=== PATIENT | female | born 1950 | race Caucasian/White ===

== ENCOUNTER → 2017-12-23 | Outpatient (CLI) | payer MEDICARE, OTHER | LOC: COL.PUL 12-19 14:00 | DX: R06.02 Shortness of breath (principal) | CPT/HCPCS: J7674 ==

== ENCOUNTER → 2020-01-10 | Outpatient (CLI) | payer MEDICARE, OTHER ==
[~2020-01-10] VITALS: Ht 161.3 cm; Wt 88.5 kg
[~2020-01-10] MED LIST: ASPIRIN E.C. 8181 MG PO; ATIVAN 1MG T1 MG/TAB PO; CELEBREX 200MG200 MG PO; COZAAR 25MG25 MG/TAB PO; CYMBALTA 60MG60 MG PO; GLUCOPHAGE1000 MG PO; LANTUS SOLOS100 U/ML SQ; LASIX 20MG TABL20 MG PO; LIPITOR20 MG PO; MAG-OX 400400 MG/TAB PO; MIRAPEX0.5 MG PO; MYSOLINE 5050 MG/TAB PO; PRIL40 PO; SYNTHROID0.05 MG/TA PO; TOPROL XL100 MG PO; TRULICITY0.75 MG/0. SQ; ZESTRIL 20MG TA20 MG PO
[2020-01-10 16:05] VITALS: BP 132/66; PULSE 72
== END ==
LOC: LIGHT 02-15 10:29
DX: Z68.34 Body mass index [BMI] 34.0-34.9, adult (principal); Z98.84 Bariatric surgery status
CPT/HCPCS: G0463

== ENCOUNTER → 2020-10-04 | Outpatient (CLI) | payer MEDICARE, OTHER | LOC: COL.RAD 09:32 | DX: R11.10 Vomiting, unspecified (principal); Z97.8 Presence of other specified devices ==

== ENCOUNTER → 2021-03-09 | Outpatient (CLI) | payer MEDICARE, OTHER | LOC: ZCOL.LAB 14:00 | DX: M25.531 Pain in right wrist (principal) ==

== ENCOUNTER 2024-05-24 06:53 | Day surgery (SDC) | payer MEDICARE, OTHER ==
[2024-05-24] VITALS (7 sets, daily range): BP systolic 125–144; BP diastolic 50–60; PULSE 66–84; TEMP 96.7–97.2
[~2024-05-24] VITALS: Ht 160 cm; Wt 83.4 kg
[~2024-05-24 06:53] MED LIST changes: +LR 1,000 ML IV SCH
[2024-05-24] MEDS ORDERED: MOUNJARO7.5 MG/0.5 IJ (07:56)
[2024-05-24] MEDS ORDERED: fentaNYL 50 MCG/ML 1 ML SYRINGE/VIAL [PACU/SDC ONLY] IV PRN (08:00)
[2024-05-24] MEDS ORDERED: fentaNYL 50 MCG/ML 2 ML VIAL ONE ×2 (08:00→11:43)
[2024-05-24] MEDS ORDERED: Ondansetron 4 MG/2 ML VIAL IV PRN ×2 (08:00→13:00)
[2024-05-24] MEDS ORDERED: HYDROmorphone 1 MG/1 ML SYRINGE [PACU/SDC ONLY] IV PRN (08:00)
[2024-05-24] MEDS ORDERED: droPERidol 2.5 MG/ML 2 ML VIAL IV PRN (08:00)
[2024-05-24] MEDS ORDERED: Midazolam 2 MG/2 ML VIAL ONE (08:01)
[2024-05-24] MEDS ORDERED: Lidocaine PF 2% (20 MG/ML) 5 ML VIAL ONE (08:01)
[2024-05-24] MEDS ORDERED: dexAMETHasone 10 MG/ML VIAL ONE (08:01)
[2024-05-24] MEDS ORDERED: Succinylcholine PF 200 MG/10 ML SYRINGE IV ONE (08:01)
[2024-05-24] MEDS ORDERED: LANTUS SOLOS100 U/ML SQ (08:05)
[2024-05-24] MEDS ORDERED: ePHEDrine 50 MG/ML VIAL ONE ×2 (08:06→10:35)
[2024-05-24] MEDS ORDERED: GLUCOTROL10 MG PO (08:12)
[2024-05-24] MEDS ORDERED: CLARITIN 1010 MG/TAB PO (08:15)
[2024-05-24] MEDS ORDERED: DIOVAN 160MG160 MG PO (08:17)
[2024-05-24] MEDS ORDERED: THE MEDICINE S200 M2 PO (08:18)
[2024-05-24] MEDS ORDERED: MIRAPEX0.5 MG PO (08:21)
[2024-05-24] MEDS ORDERED: Ondansetron 4 MG/2 ML VIAL ONE (10:27)
[2024-05-24] MEDS ORDERED: NS 20 ML IV ONE (10:27)
[2024-05-24] MEDS ORDERED: EPINEPHrine 1 MG/1 ML Ampule IR ONE (10:58)
[2024-05-24] MEDS ORDERED: CEPHALEXIN500 M1 PO (12:51)
[2024-05-24] MEDS ORDERED: ULTRAM 50MG TAB50 MG PO (12:51)
[2024-05-24] MEDS ORDERED: NORCO 325 MG-51 TAB PO (12:51)
[2024-05-24] MEDS ORDERED: oxyCODONE/Acetaminophen 5-325 MG TAB PO PRN (13:00)
--- NOTE | 2024-05-24 13:15 | NUR ---
PATIENT RETURNED TO ROOM 8 VIA CART, ALERT AND ORIENTED X3. DENIES PAIN, NAUSEA AND SHORTNESS OF BREATH. BREATHING REGULAR AND UNLABORED ON 2L VIA NASAL CANNULA. SKIN WARM AND DRY. NURSE HANDOFF COMPLETED IN ROOM WITH INSPECTION OF SURGICAL SITE DRESSING. VISIBLE SILK TAPE TO LEFT SHOULDER. DRESSING IS CLEAN, DRY AND INTACT. SURROUNDING SKIN INTACT, NO REDNESS. ICE PACK IN PLACE OVER DRESSING. LEFT ARM SLING IN PLACE. BILATERAL RADIAL PULSES 3+ REGULAR. BILATERAL FINGERS CAPILLARY REFILL <3 SECONDS. PATIENT ABLE TO WIGGLE FINGERS, DENIES SENSATION. SEE CHART FOR VITAL SIGNS. PATIENT HAD WATER, SALTINES AND CHEESE. PACU NURSE REPORTED TAKING PATIENTS BLOOD SUGAR ([id number]). FOOD AND DRINK TOLERATED WELL, NO DYSPHAGIA. CALL LIGHT IN REACH.
--- NOTE | 2024-05-24 14:28 | NUR ---
1408: DISCHARGE TEACHING COMPLETED WITH PRINTED EDUCATION AND INSTRUCTIONS SENT HOME WITH PATIENT. PATIENT INSTRUCTED TO CALL TO SCHEDULE A ONE WEEK FOLLOW UP APPOINTMENT. NUMBER PROVIDED. PATIENT VERBALIZED UNDERSTANDING. PER OFFICE STAFF, THEY WILL CALL THE PATIENT TOMORROW (05/25/24) TO CHECK ON PATIENT AND VERIFY A FOLLOW UP APPOINTMENT HAS BEEN MADE. 1411: PATIENT AMBULATED TO RESTROOM WITH STEADY GAIT AND VOIDED. 1420: PATIENT DENIES PAIN AND NAUSEA. BREATHING REGULAR AND UNLABORED ON ROOM AIR. LEFT SHOULDER DRESSING CLEAN, DRY AND INTACT. LEFT ARM SLING IN PLACE. IV REMOVED. GAUZE AND COBAN PLACED OVER SITE. 1428: PATIENT DISCHARGED HOME WITH FRIEND [employer]. LEFT ARM SLING IN PLACE. ICE PACK AND BALL SENT HOME WITH PATIENT.
== END 2024-05-24 14:28 | disposition home or self-care (01) ==
LOC: SDCO 06:53
DX: M75.122 Complete rotator cuff tear or rupture of left shoulder, not specified as traumatic (principal); S46.212A Strain of muscle, fascia and tendon of other parts of biceps, left arm, initial encounter; S43.432A Superior glenoid labrum lesion of left shoulder, initial encounter; M19.012 Primary osteoarthritis, left shoulder; Z79.82 Long term (current) use of aspirin
CPT/HCPCS: A4566; A4619; C1713; J0171; J1100; J2250; J2405; J2704; J2795; J3010; J7120